=== PATIENT | male | born 2000 | race Caucasian/White ===

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

== ENCOUNTER 2020-02-07 13:28 | Emergency (ER) | payer OTHER ==
[~2020-02-07] VITALS: Ht 182.8 cm; Wt 79.4 kg
[~2020-02-07 13:28] MED LIST changes: +PREDNISONE20 M1 PO; +ROBAXIN500 M1 PO
[2020-02-07 13:47] VITALS: BP 111/65
== END 2020-02-07 15:52 | disposition home or self-care (01) ==
LOC: ED 13:28
DX: T15.92XA Foreign body on external eye, part unspecified, left eye, initial encounter (principal); M25.562 Pain in left knee; F17.200 Nicotine dependence, unspecified, uncomplicated; Z79.899 Other long term (current) drug therapy; X58.XXXA Exposure to other specified factors, initial encounter; Y93.89 Activity, other specified; Y92.89 Other specified places as the place of occurrence of the external cause; Y99.8 Other external cause status

== ENCOUNTER 2022-12-19 04:26 | Emergency (ER) | payer OTHER ==
[~2022-12-19] VITALS: Ht 180.3 cm; Wt 74.8 kg
[2022-12-19 05:25] LABS: ALKALINE PHOSPHATASE 142 U/L (46-116); BUN 16 mg/dl (9-23); CHLORIDE 103 mmol/L (98-107); LIPASE 28 U/L (12-53); POTASSIUM 3.9 mmol/L (3.4-5.1); SGPT/ALT 10 U/L (10-49); TOTAL PROTEIN 7.8 gm/dL (6.0-8.0)
[2022-12-19 06:06] LABS: HEMATOCRIT 44.6 % (42.0-52.0); MEAN CELL VOLUME 86.9 fl (80.0-94.0); MEAN CORPUSCULAR HGB 29.2 pg (27.0-31.0); MEAN CORPUSCULAR HGB CONC 33.6 g/dl (33.0-37.0); MEAN PLATELET VOLUME 9.3 fl (9.6-12.3); PLATELET COUNT AUTOMATED 298 10*3/uL (130-400); RED BLOOD COUNT 5.13 10*6/uL (4.50-5.90); RED CELL DISTRI WIDTH 13.3 % (0-14.5); WHITE BLOOD COUNT 13.6 10*3/uL (4.8-10.8)
[2022-12-19 06:08] LABS: MANUAL DIFF REFLEX YES
[2022-12-19 06:29] LABS: TOTAL CELLS COUNTED 100 #CELLS
[2022-12-19 06:30] LABS: BURR CELLS FEW; PLATELET SUFFICIENCY NORMAL (NORMAL); POLYCHROMASIA SLIGHT; ROULEAUX SLIGHT
[2022-12-19 13:45] VITALS: BP 112/82
== END 2022-12-19 14:01 | disposition short-term general hospital (02) ==
LOC: ED 04:26
PROVIDERS: Internal Medicine
DX: K35.80 Unspecified acute appendicitis (principal); J90 Pleural effusion, not elsewhere classified; R11.2 Nausea with vomiting, unspecified

== ENCOUNTER 2023-01-11 17:38 | Emergency (ER) | payer OTHER ==
[~2023-01-11] VITALS: Wt 74.8 kg
[2023-01-11 19:08] LABS: BASO % 0.6 % (0.0-1.0); EOS # 0.1 10*3/uL (0.0-0.4); EOS % 2.8 % (1.0-4.0); HEMATOCRIT 38.6 % (42.0-52.0); LYMPH # 0.5 10*3/uL (1.3-4.4); LYMPH % 11.4 % (27.0-41.0); MEAN CELL VOLUME 88.3 fl (80.0-94.0); MEAN CORPUSCULAR HGB CONC 33.9 g/dl (33.0-37.0); MEAN PLATELET VOLUME 8.5 fl (9.6-12.3); MONO # 0.5 10*3/uL (0.1-1.0); MONO % 9.9 % (3.0-9.0); NEUT # 3.5 10*3/uL (2.3-7.9); NEUT % 74.9 % (47.0-73.0); PLATELET COUNT AUTOMATED 282 10*3/uL (130-400); RED BLOOD COUNT 4.37 10*6/uL (4.50-5.90); RED CELL DISTRI WIDTH 14.9 % (0-14.5); WHITE BLOOD COUNT 4.7 10*3/uL (4.8-10.8)
[2023-01-11 19:22] LABS: ALKALINE PHOSPHATASE 122 U/L (46-116); BUN 7 mg/dl (9-23); CHLORIDE 106 mmol/L (98-107); LIPASE 27 U/L (12-53); POTASSIUM 3.9 mmol/L (3.4-5.1); SGPT/ALT 36 U/L (10-49); TOTAL PROTEIN 7.1 gm/dL (6.0-8.0)
[2023-01-12 22:05] VITALS: BP 104/68
== END 2023-01-12 22:52 | disposition short-term general hospital (02) ==
LOC: ED 17:38
PROVIDERS: Emergency Medicine
DX: J43.9 Emphysema, unspecified (principal); I31.39 Other pericardial effusion (noninflammatory); Z88.1 Allergy status to other antibiotic agents

== ENCOUNTER 2023-04-22 11:43 | Emergency (ER) | payer OTHER ==
[~2023-04-22] VITALS: Ht 182.8 cm; Wt 78.5 kg
[2023-04-22] MEDS ORDERED: VYVANSE60 MG PO (12:20)
[2023-04-22 12:34] LABS: BASO % 0.3 % (0.0-1.0); EOS # 0.1 10*3/uL (0.0-0.4); HEMATOCRIT 43.2 % (42.0-52.0); LYMPH # 0.9 10*3/uL (1.3-4.4); LYMPH % 13.2 % (27.0-41.0); MEAN CELL VOLUME 82.1 fl (80.0-94.0); MEAN CORPUSCULAR HGB CONC 31.7 g/dl (33.0-37.0); MEAN PLATELET VOLUME 9.9 fl (9.6-12.3); MONO # 0.6 10*3/uL (0.1-1.0); MONO % 8.5 % (3.0-9.0); NEUT # 5.3 10*3/uL (2.3-7.9); NEUT % 75.6 % (47.0-73.0); PLATELET COUNT AUTOMATED 251 10*3/uL (130-400); RED BLOOD COUNT 5.26 10*6/uL (4.50-5.90); RED CELL DISTRI WIDTH 14.8 % (0-14.5)
[2023-04-22 12:45] LABS: INTERNATIONAL NORM RATIO 1.2 (2.0-3.5)
[2023-04-22 13:00] LABS: ALKALINE PHOSPHATASE 171 U/L (46-116); BUN 14 mg/dl (9-23); CHLORIDE 105 mmol/L (98-107); POTASSIUM 4.1 mmol/L (3.4-5.1); SGPT/ALT 26 U/L (10-49); TOTAL PROTEIN 7.8 gm/dL (6.0-8.0)
[2023-04-22 16:03] VITALS: BP 123/79
== END 2023-04-22 17:34 | disposition short-term general hospital (02) ==
LOC: ED 11:43
PROVIDERS: Emergency Medicine
DX: K37 Unspecified appendicitis (principal); J86.9 Pyothorax without fistula; I31.39 Other pericardial effusion (noninflammatory); Z88.8 Allergy status to other drugs, medicaments and biological substances; F90.9 Attention-deficit hyperactivity disorder, unspecified type

== ENCOUNTER 2023-10-29 23:25 | Emergency (ER) | payer OTHER ==
[~2023-10-29] VITALS: Ht 182.8 cm; Wt 74.8 kg
[~2023-10-29 23:25] MED LIST changes: +VYVANSE60 MG PO
[2023-10-30 00:08] LABS: BASO % 0.5 % (0.0-1.0); EOS # 0.3 10*3/uL (0.0-0.4); EOS % 3.7 % (1.0-4.0); HEMATOCRIT 44.1 % (42.0-52.0); LYMPH # 1.1 10*3/uL (1.3-4.4); LYMPH % 13.1 % (27.0-41.0); MEAN CORPUSCULAR HGB 29.7 pg (27.0-31.0); MEAN CORPUSCULAR HGB CONC 33.8 g/dl (33.0-37.0); MEAN PLATELET VOLUME 8.9 fl (9.6-12.3); MONO # 0.7 10*3/uL (0.1-1.0); MONO % 7.6 % (3.0-9.0); NEUT # 6.5 10*3/uL (2.3-7.9); NEUT % 74.8 % (47.0-73.0); PLATELET COUNT AUTOMATED 258 10*3/uL (130-400); RED BLOOD COUNT 5.01 10*6/uL (4.50-5.90); RED CELL DISTRI WIDTH 12.9 % (0-14.5); WHITE BLOOD COUNT 8.7 10*3/uL (4.8-10.8)
[2023-10-30 00:19] LABS: ACT PARTIAL THROMBO TIME 33.2 SECONDS (20.0-32.1)
[2023-10-30 00:37] LABS: ALKALINE PHOSPHATASE 151 U/L (46-116); BUN 10 mg/dl (9-23); CHLORIDE 105 mmol/L (98-107); LIPASE 29 U/L (12-53); POTASSIUM 3.8 mmol/L (3.4-5.1); SGPT/ALT 12 U/L (5-49); TOTAL PROTEIN 7.9 gm/dL (6.0-8.0)
[2023-10-30 05:06] VITALS: BP 114/78
== END 2023-10-30 05:04 | disposition short-term general hospital (02) ==
LOC: ED 23:25
PROVIDERS: Internal Medicine
DX: K35.80 Unspecified acute appendicitis (principal); I51.7 Cardiomegaly; J90 Pleural effusion, not elsewhere classified; F90.9 Attention-deficit hyperactivity disorder, unspecified type; Z88.1 Allergy status to other antibiotic agents

== ENCOUNTER → 2024-03-06 | Outpatient (CLI) | payer OTHER ==
[2024-03-06 14:53] LABS: HEMATOCRIT 45.6 % (42.0-52.0); MEAN CELL VOLUME 91.4 fl (80.0-94.0); MEAN CORPUSCULAR HGB 30.5 pg (27.0-31.0); MEAN CORPUSCULAR HGB CONC 33.3 g/dl (33.0-37.0); MEAN PLATELET VOLUME 8.8 fl (9.6-12.3); RED BLOOD COUNT 4.99 10*6/uL (4.50-5.90); RED CELL DISTRI WIDTH 13.5 % (0-14.5); WHITE BLOOD COUNT 5.1 10*3/uL (4.8-10.8)
[2024-03-06 15:23] LABS: ALKALINE PHOSPHATASE 151 U/L (46-116); BUN 13 mg/dl (9-23); CHLORIDE 104 mmol/L (98-107); CHOLESTEROL 163 mg/dL (<200); LDL CHOLESTEROL 103 mg/dL (9-159); POTASSIUM 4.7 mmol/L (3.4-5.1); SGPT/ALT 31 U/L (5-49); TOTAL PROTEIN 7.4 gm/dL (6.0-8.0); TRIGLYCERIDES 127 mg/dl (<150)
[2024-03-06 15:26] LABS: VITAMIN D, 25-HYDROXY 36.3 ng/mL (30-100)
== END | disposition home or self-care (01) ==
LOC: LAB 14:40
PROVIDERS: ATTEND Family Medicine
DX: R91.8 Other nonspecific abnormal finding of lung field (principal); R04.2 Hemoptysis; E55.9 Vitamin D deficiency, unspecified; R05.9 Cough, unspecified; R53.83 Other fatigue; M79.89 Other specified soft tissue disorders; J90 Pleural effusion, not elsewhere classified